=== PATIENT | female | born 1965 | race Caucasian/White ===

== ENCOUNTER 2019-09-16 23:07 | Outpatient (CLI) | payer MEDICAID | END 2019-09-16 23:08 | disposition critical access hospital (66) | LOC: EMS 23:07 | PROVIDERS: ATTEND Surgery | DX: T43.222A Poisoning by selective serotonin reuptake inhibitors, intentional self-harm, initial encounter (principal); R53.83 Other fatigue; R11.0 Nausea | CPT/HCPCS: A0425; A0427; A0999 ==

== ENCOUNTER 2019-09-16 23:34 | Emergency (ER) | payer MEDICAID ==
--- NOTE | 2019-09-16 23:44 | ED Physician Documentation ---
History of Present Illness - Stated complaint Stated Complaint: SI/ETOH - Additonal information Additional information: This is a 54-year-old female who presents with suicidal ideation alcohol intoxication. She states she drank "a bunch" of alcohol tonight. She reportedly became increasingly depressed while drinking and attempted to take a handful of prozac. Her mother reportedly tackled her and took almost all of the prozac out of her mouth and hand, it sounds like patient was only able to swallow a couple of them. She has a history of depression and suicide attempts. She is intoxicated and not providing much usable history at this time. Review of Systems Unable to obtain: Intoxicated PD PAST MEDICAL HISTORY - Present Medications Home Medications: Ambulatory Orders Medication Instructions Recorded Confirmed Home Medications Unobtainable 09/16/19 09/16/19 [HOME MEDICATIONS UNOBTAINABLE] - Allergies Allergies/Adverse Reactions: Allergies Allergy/AdvReac Type Severity Reaction Status Date / Time No Known Drug Allergies Allergy Verified 09/16/19 23:45 PD ED PE NORMAL - Vitals Vital signs reviewed: Yes - General General: Other (Awake, intoxicated with slurred speech.) - HEENT HEENT: Atraumatic, PERRL - Neck Neck: Supple, no meningeal sign - Cardiac Cardiac: RRR, No murmur - Respiratory Respiratory: Clear bilaterally - Abdomen Abdomen: Normal bowel sounds, Soft, Non tender, Non distended - Derm Derm: Warm and dry - Extremities Extremities: No deformity - Neuro Neuro: Alert and oriented X 3 - Psych Psych: Other (Intoxicated, Endorses suicide ideation, unable to tell me any plan.) Results - Vitals Vitals: Vital Signs - 24 hr 09/17/19 09/17/19 07:37 14:16 Heart Rate 78 78 Respiratory 16 16 Rate Blood Pressure 168/72 H O2 Saturation 99 96 Oxygen O2 Source Room air - EKG (time done) 23:57 Other comments: Other comments (Rate 71, rhythm sinus, there is no ST segment elevation or depression, QTC 447. Intervals within normal limits) - Labs Labs: Laboratory Tests 09/16/19 09/16/19 09/16/19 23:50 23:50 23:50 WBC 6.6 RBC 3.90 L Hgb 11.7 L Hct 37.2 MCV 95.4 MCH 30.0 MCHC 31.5 L RDW 14.0 Plt Count 263 MPV 8.9 Neut # (Auto) 3.8 Lymph # (Auto) 2.1 [place] # (Auto) 0.4 Eos # (Auto) 0.1 Baso # (Auto) 0.1 Absolute Nucleated RBC 0.00 Nucleated RBC % 0.0 Sodium 136 Potassium 3.6 Chloride 101 Carbon Dioxide 24 Anion Gap 11.0 BUN 19 Creatinine 0.7 Estimated GFR (MDRD) 87 L Glucose 118 H Calcium 8.5 Total Bilirubin 0.2 AST 25 ALT 26 Alkaline Phosphatase 81 Total Protein 7.0 Albumin 4.2 Globulin 2.8 Albumin/Globulin Ratio 1.5 Lipase 25 TSH 2.50 Urine Color Urine Clarity Urine pH Ur Specific [place] Urine Protein Urine Glucose (UA) Urine Ketones Urine Occult Blood Urine Nitrite Urine Bilirubin Urine Urobilinogen Ur Leukocyte Esterase Urine RBC Urine WBC Ur Squamous Epith Cells Urine Bacteria Ur Microscopic Review Urine Culture Comments Urine HCG, Qual Salicylates < 6.0 Urine Opiates Screen Ur Oxycodone Screen Urine Methadone Screen Ur Propoxyphene Screen Acetaminophen < 10 L Ur Barbiturates Screen Ur Tricyclics Screen Ur Phencyclidine Scrn Ur Amphetamine Screen U Methamphetamines Scrn U Benzodiazepines Scrn Urine Cocaine Screen U Cannabinoids Screen Ethyl Alcohol 381.8 09/17/19 09/17/19 09/17/19 03:10 03:10 07:23 WBC RBC Hgb Hct MCV MCH MCHC RDW Plt Count MPV Neut # (Auto) Lymph # (Auto) [place] # (Auto) Eos # (Auto) Baso # (Auto) Absolute Nucleated RBC Nucleated RBC % Sodium Potassium Chloride Carbon Dioxide Anion Gap BUN Creatinine Estimated GFR (MDRD) Glucose Calcium Total Bilirubin AST ALT Alkaline Phosphatase Total Protein Albumin Globulin Albumin/Globulin Ratio Lipase TSH Urine Color YELLOW Urine Clarity CLEAR Urine pH 6.0 Ur Specific [place] 1.020 Urine Protein NEGATIVE Urine Glucose (UA) NEGATIVE Urine Ketones NEGATIVE Urine Occult Blood NEGATIVE Urine Nitrite NEGATIVE Urine Bilirubin NEGATIVE Urine Urobilinogen 0.2 (NORMAL) Ur Leukocyte Esterase TRACE H Urine RBC None Seen Urine WBC 4-5 Ur Squamous Epith Cells MOD Squamous H Urine Bacteria Rare Ur Microscopic Review INDICATED Urine Culture Comments NOT INDICATED Urine HCG, Qual NEGATIVE Salicylates Urine Opiates Screen NEGATIVE Ur Oxycodone Screen NEGATIVE Urine Methadone Screen NEGATIVE Ur Propoxyphene Screen NEGATIVE Acetaminophen Ur Barbiturates Screen NEGATIVE Ur Tricyclics Screen NEGATIVE Ur Phencyclidine Scrn NEGATIVE Ur Amphetamine Screen NEGATIVE U Methamphetamines Scrn NEGATIVE U Benzodiazepines Scrn NEGATIVE Urine Cocaine Screen NEGATIVE U Cannabinoids Screen NEGATIVE Ethyl Alcohol 207.0 09/17/19 12:38 WBC RBC Hgb Hct MCV MCH MCHC RDW Plt Count MPV Neut # (Auto) Lymph # (Auto) [place] # (Auto) Eos # (Auto) Baso # (Auto) Absolute Nucleated RBC Nucleated RBC % Sodium Potassium Chloride Carbon Dioxide Anion Gap BUN Creatinine Estimated GFR (MDRD) Glucose Calcium Total Bilirubin AST ALT Alkaline Phosphatase Total Protein Albumin Globulin Albumin/Globulin Ratio Lipase TSH Urine Color Urine Clarity Urine pH Ur Specific [place] Urine Protein Urine Glucose (UA) Urine Ketones Urine Occult Blood Urine Nitrite Urine Bilirubin Urine Urobilinogen Ur Leukocyte Esterase Urine RBC Urine WBC Ur Squamous Epith Cells Urine Bacteria Ur Microscopic Review Urine Culture Comments Urine HCG, Qual Salicylates Urine Opiates Screen Ur Oxycodone Screen Urine Methadone Screen Ur Propoxyphene Screen Acetaminophen Ur Barbiturates Screen Ur Tricyclics Screen Ur Phencyclidine Scrn Ur Amphetamine Screen U Methamphetamines Scrn U Benzodiazepines Scrn Urine Cocaine Screen U Cannabinoids Screen Ethyl Alcohol 88.9 PD MEDICAL DECISION MAKING - ED course Complexity details: considered differential (SI, overdose, electrolyte abnormality, depression, medication side effect) ED course: On arrival patient is intoxicated, her exam is nonfocal. Her labs are unremarkable other than alcohol level of 380 patient. Pt was allowed to metabolize, and her mental status continually improved. EKG unremarkable. It sounds like she took minimal extra pills of her SSRI. No symptoms of serontonin syndrome or toxicity at this time. After 6 hours she continues to have no new symptoms. Plan is to reassess patient once she is clinically sober to assess for suicidal ideation and a safe plan of disposition. If patient is not suicidal once sober and has a safe plan, she may be appropriate for discharge. Dr. Martinez assumed care of patient at the end of my shift. Departure - Departure Disposition: 01 Home, Self Care Clinical Impression: Suicidal ideation Alcohol intoxication Qualifiers: Complication of substance-induced condition: with unspecified complication Qualified Code(s): F10.929 - Alcohol use, unspecified with intoxication, unspecified Depression Qualifiers: Depression Type: unspecified Qualified Code(s): F32.9 - Major depressive disorder, single episode, unspecified Condition: Good Instructions: ED Alcohol Intoxication Comments: Follow-up with counseling services to establish ongoing counseling for your depression. Avoid alcohol and certainly any excess alcohol in particular. Stay well-hydrated and regular diet. Daily small amount of exercise will help with mood as well. This can be as simple as going for a walk outside for 20 minutes. Discharge Date/Time: 09/17/19 14:17
[2019-09-16 23:56] LABS: BASOPHILS # (AUTO) 0.1 10^3/uL (0.0-0.1); BASOPHILS % (AUTO) 1.2 %; EOSINOPHILS # (AUTO) 0.1 10^3/uL (0.0-0.7); HGB - HEMOGLOBIN 11.7 g/dL (12.0-16.0); LYMPHOCYTES # (AUTO) 2.1 10^3/uL (1.5-3.5); LYMPHOCYTES % (AUTO) 32.1 %; MEAN CORPUSCULAR HGB CONC 31.5 g/dL (32.0-36.0); MEAN CORPUSCULAR VOLUME 95.4 fL (81.0-99.0); MEAN PLATELET VOLUME 8.9 fL (7.9-10.8); MONOCYTES # (AUTO) 0.4 10^3/uL (0.0-1.0); MONOCYTES % (AUTO) 6.1 %; NEUTROPHILS # (AUTO) 3.8 10^3/uL (1.5-6.6); NEUTROPHILS % (AUTO) 58.1 %; PLT - PLATELET COUNT 263 10^3/uL (130-450); WHITE BLOOD COUNT 6.6 x10^3/uL (4.8-10.8)
[2019-09-17 00:09] LABS: ACETAMINOPHEN < 10 ug/mL (10-30); ALBUMIN 4.2 g/dL (3.2-5.5); ALBUMIN/GLOBULIN RATIO 1.5 (1.0-2.2); ALKALINE PHOSPHATASE 81 IU/L (42-121); ALT ALANINE AMINOTRANSFERASE 26 IU/L (10-60); AST ASPARTATE AMINOTRANSFERASE 25 IU/L (10-42); BILIRUBIN,TOTAL 0.2 mg/dL (0.2-1.0); BUN - BLOOD UREA NITROGEN 19 mg/dL (6-20); CALCIUM 8.5 mg/dL (8.5-10.3); CARBON DIOXIDE - CO2 24 mmol/L (21-32); CHLORIDE 101 mmol/L (101-111); CREATININE 0.7 mg/dL (0.4-1.0); GLUCOSE 118 mg/dL (70-100); LIPASE 25 U/L (22-51); SALICYLATE < 6.0 mg/dL; SODIUM 136 mmol/L (135-145)
[2019-09-17 03:16] LABS: MUDS CUTOFF CONCENTRATIONS CUTOFF CONC BELOW:
[2019-09-17 03:18] LABS: BILIRUBIN,URINE NEGATIVE (NEGATIVE); GLUCOSE, URINE (UA) NEGATIVE (NEGATIVE); KETONES,URINE (UA) NEGATIVE (NEGATIVE); LEUKOCYTE ESTERASE, URINE TRACE (NEGATIVE); NITRITE,URINE NEGATIVE (NEGATIVE); OCCULT BLOOD,URINE NEGATIVE (NEGATIVE); PROTEIN,URINE NEGATIVE (NEGATIVE); UROBILINOGEN,URINE 0.2 (NORMAL) E.U./dL (NORMAL)
[2019-09-17 03:20] LABS: CLARITY,URINE CLEAR (CLEAR); HCG UR QUAL NEGATIVE
[2019-09-17 03:24] LABS: BACTERIA,URINE Rare /HPF (None Seen); RBC,URINE None Seen /HPF (0-5); SQUAMOUS EPITHELIAL CELL,UR MOD Squamous (<= Few)
[2019-09-17 03:29] LABS: AMPHETAMINE SCREEN,URINE NEGATIVE (NEGATIVE); BENZODIAZEPINES SCREEN, URINE NEGATIVE (NEGATIVE); COCAINE SCREEN URINE NEGATIVE (NEGATIVE); METHADONE SCREEN, URINE NEGATIVE (NEGATIVE); METHAMPHETAMINES SCREEN, URINE NEGATIVE (NEGATIVE); OPIATE SCREEN, URINE NEGATIVE (NEGATIVE); OXYCODONE SCREEN, URINE NEGATIVE (NEGATIVE); PROPOXYPHENE SCREEN, URINE NEGATIVE (NEGATIVE); TRICYCLIC ANTIDEPRESSANT,URINE NEGATIVE (NEGATIVE)
--- NOTE | 2019-09-17 13:54 | ED Physician Documentation ---
ED Addendum - Addendum Addendum: 09/17/19 13:51 The patient slowly arouse for the morning. She had rested well. She is able to take some fluids and snacks orally. Her replete blood alcohol is at the legal limit. She is awake alert and conversant and does not remember much of last evening. She says she does have a history of some depression and is been trying to get started on counseling but was not not finding who takes her insurance easily. She is working with her primary care for this as well. She denies any suicidal ideation at this point. She states she does not drink daily but binge drinks at times. She can go several days or at least a couple of days without any withdrawal type symptoms. She does not feel she would need any medications. I will have social work talk with her just to help align counseling follow-up. She verbally contracts with me to not hurt her self and to call the crisis line if she were to feel any desire that way. She also promises not to drink heavily. Diagnoses #1 alcohol intoxication #2 suicidal ideation with vocalization #3 history of depression Disposition the patient is discharged home in stable condition.
[2019-09-17 14:17] VITALS: BP 168/72
== END 2019-09-17 14:17 | disposition home or self-care (01) ==
LOC: EDUNIT# → ED 23:34
DX: R45.851 Suicidal ideations (principal); F10.129 Alcohol abuse with intoxication, unspecified; Y90.8 Blood alcohol level of 240 mg/100 ml or more; F32.9 Major depressive disorder, single episode, unspecified
CPT/HCPCS: 36415; 80053; 80306; 80307; 80320; 80329; 81001; 81003; 81025; 83690; 84443; 85025; 87086; 93005; 99281; 99284

== ENCOUNTER 2019-09-22 19:22 | Outpatient (CLI) | payer MEDICAID | END 2019-09-22 19:23 | disposition critical access hospital (66) | LOC: EMS 19:22 | PROVIDERS: ATTEND Surgery | DX: I46.9 Cardiac arrest, cause unspecified (principal) | CPT/HCPCS: A0425; A0433; A0999 ==

== ENCOUNTER 2019-09-22 19:46 | Emergency (ER) | payer MEDICAID ==
--- NOTE | 2019-09-22 19:49 | ED Physician Documentation ---
PD HPI CPR - Stated complaint Stated Complaint: CPR - History of Present Illness Timing - onset: Today (54-year-old woman brought in by ambulance for cardiac arrest, some concern for overdose. That said on arrival here she has been down for over an hour. In asystole for much of it. She is received 3 A of atropine, 8 rounds of epinephrine, and an amp of bicarb. She also received Narcan without improvement.) Review of Systems Unable to obtain: Intubated PD PAST MEDICAL HISTORY - Present Medications Home Medications: Ambulatory Orders Medication Instructions Recorded Confirmed Home Medications Unobtainable 09/16/19 09/16/19 [HOME MEDICATIONS UNOBTAINABLE] - Allergies Allergies/Adverse Reactions: Allergies Allergy/AdvReac Type Severity Reaction Status Date / Time No Known Drug Allergies Allergy Verified 09/16/19 23:45 - Social History Does the pt smoke?: No Smoking Status: Never smoker PD ED PE NORMAL - Vitals Vital signs reviewed: Yes - General General: Other (She is intubated with a [place] tube with excellent breath sounds. Pupils are fixed and dilated and GCS is 3.) Results - Vitals Vitals: Vital Signs - 24 hr 09/22/19 19:46 Heart Rate 0 L Respiratory 0 L Rate Blood Pressure 0/0 L Oxygen O2 Source Room air PD MEDICAL DECISION MAKING - ED course ED course: This is a 54-year-old woman who arrives in cardiac arrest. She is been undergoing CPR for about an hour now. She is received excellent prehospital care and ACLS has resulted in no return of spontaneous circulation. On arrival she has no signs of life. She is in asystole, there is no cardiac motion at all on ultrasound. No spontaneous breathing. Pupils are fixed and dilated. Further care was deemed futile and the code was called at 1946. I tried calling her mother on the number listed on the chart, there was no answer. I left a voicemail but it was vague given that there was no identifying information on the voicemail message; I just asked for a call back. Mom did arrive at the hospital and her questions were answered. She was brought to the bedside as well. Departure - Departure Disposition: 20 Clinical Impression: Cardiac arrest
[2019-09-22 19:55] VITALS: BP 0/0
== END 2019-09-22 21:48 | disposition expired ==
LOC: EDBD → ED 19:46
DX: I46.9 Cardiac arrest, cause unspecified (principal)
CPT/HCPCS: 99281; 99285